=== PATIENT | female | born 1960 | race Caucasian/White ===

== ENCOUNTER → 2018-11-06 | Outpatient (CLI) | payer OTHER ==
[2018-11-06 16:20] LABS: African American GFR (CKD) 95.5 (60.0-200.0); Albumin 4.5 g/dL (3.80-4.90); Albumin/Globulin Ratio 2.5 (1.60-3.17); Anion Gap 7.2 mmol/L (4.00-12.00); Calcium 9.6 mg/dL (8.7-10.3); Carbon Dioxide 28.8 mmol/L (21.6-31.8); Globulin 1.8 g/dL (1.6-3.3); Potassium 4.9 mmol/L (3.5-5.5); Total Bilirubin 0.6 mg/dL (0.2-1.2); Total Protein 6.3 g/dL (6.2-8.2)
== END | disposition home or self-care (01) ==
LOC: LABWHC1 08:27
PROVIDERS: ATTEND Nurse Practitioner Family
DX: E78.5 Hyperlipidemia, unspecified (principal); E55.9 Vitamin D deficiency, unspecified
CPT/HCPCS: 36415; 80053; 80061; 82306

== ENCOUNTER → 2019-01-18 | Outpatient (CLI) | payer OTHER ==
--- NOTE | 2019-01-18 16:41 | US ---
EXAMINATION TYPE: US venous doppler duplex LE LT DATE OF EXAM: 01/18/2019 1:02 PM COMPARISON: NONE CLINICAL HISTORY: 58-year-old female I83.812 Varicose vein left LE, R22.42 Swelling/mass. SIDE PERFORMED: Left TECHNIQUE: The lower extremity deep venous system is examined utilizing real time linear array sonog kilo with graded compression, doppler sonography and color-flow sonography. FINDINGS: VESSELS IMAGED: External Iliac Vein (EIV) Common Femoral Vein Deep Femoral Vein Greater Saphenous Vein * Femoral Vein Popliteal Vein Small Saphenous Vein * Proximal Calf Veins (* superficial vessels) Left Leg: Negative for DVT Area of discoloration scanned in left anterior leg. No mass or fluid collection at this area. IMPRESSION: No evidence for DVT within the left lower extremity imaged from the groin to the upper calf.
== END | disposition home or self-care (01) ==
LOC: RADUSWWP 12:28
PROVIDERS: ATTEND Family Medicine
DX: R22.42 Localized swelling, mass and lump, left lower limb (principal)

== ENCOUNTER → 2019-03-02 | Outpatient (CLI) | payer OTHER ==
--- NOTE | 2019-03-02 10:37 | US ---
EXAMINATION TYPE: US abdomen complete DATE OF EXAM: 03/02/2019 COMPARISON: NONE CLINICAL HISTORY: E66.9 OBESITY,R945 ABN LIVER RESULTS. EXAM MEASUREMENTS: Liver Length: 12.4 cm Gallbladder Wall: 0.2 cm CBD: 0.3 cm Spleen: 9.0 cm Right Kidney: 10.3 x 4.8 x 4.0 cm Left Kidney: 9.5 x 4.5 x 4.5 cm Pancreas: wnl Liver: anechoic area adjacent to gallbladder wall Gallbladder: wnl Evidence for sonographic Easton's sign: no CBD: wnl Spleen: wnl Right Kidney: No hydronephrosis or masses seen Left Kidney: No hydronephrosis or masses seen Upper IVC: wnl Abd Aorta: wnl The visualized liver is slightly heterogeneous. The intrahepatic portion of the IVC and visualized a bdominal aorta are within normal limits. There is no evidence of cholelithiasis. Common bile duct i s unremarkable. The visualized portions of the pancreas are homogenous. The spleen is unremarkable. Kidneys are symmetric and free of hydronephrosis. No renal lesions are seen on images saved. IMPRESSION: No suspicious acute findings identified. No worrisome intrahepatic mass or ductal dilatat ion. Probable mild diffuse fatty infiltration of liver.
== END | disposition home or self-care (01) ==
LOC: RADUSWWP 06:56
PROVIDERS: ATTEND Family Medicine
DX: R94.5 Abnormal results of liver function studies (principal); E66.9 Obesity, unspecified
CPT/HCPCS: 76700

== ENCOUNTER → 2019-10-27 | Outpatient (CLI) | payer OTHER ==
--- NOTE | 2019-10-28 11:19 | MM ---
Reason for exam: screening (asymptomatic). Last mammogram was performed 1 year and 3 months ago. History: Patient is postmenopausal. Physical Findings: A clinical breast exam by your physician is recommended on an annual basis and results should be correlated with mammographic findings. MG Screening Mammo w CAD Bilateral CC and MLO view(s) were taken. XCCL view(s) were taken of the right breast. Prior study comparison: August 10, 2018, mammogram. July 17, 2016, mammogram. There are scattered fibroglandular densities. There is no discrete abnormality. No significant changes when compared with prior studies. ASSESSMENT: Negative, BI-RAD 1 RECOMMENDATION: Routine screening mammogram of both breasts in 1 year.
== END | disposition home or self-care (01) ==
LOC: RADMAMWWP 09:11
PROVIDERS: ATTEND Family Medicine
DX: Z12.31 Encounter for screening mammogram for malignant neoplasm of breast (principal)
CPT/HCPCS: 77067

== ENCOUNTER → 2023-05-07 | Outpatient (CLI) | payer OTHER ==
--- NOTE | 2023-05-11 15:49 | MM ---
Reason for Exam: Screening (asymptomatic). Last mammogram was performed 3 year(s) and 6 month(s) ago. Patient History: Menarche at age 15. First Full-Term at age 26. Postmenopausal. Risk Values: Isamar 5 year model risk: 1.3%. NCI Lifetime model risk: 6.6%. Prior Study Comparison: 07/17/2016 Screening Mammogram, Unknown. 08/10/2018 Screening Mammogram, Unknown. 10/27/2019 Bilateral Screening Mammogram, [facility]. Tissue Density: There are scattered fibroglandular densities. Findings: Analyzed By CAD. The pattern is symmetrical. There is a new nodularity within the upper left mediolateral oblique view 8 cm nipple. Additional workup of this area is recommended. No suspicious groups of microcalcifications, spiculated or lobular masses, architectural distortion or other secondary signs of malignancy are mammographically apparent.The pattern is symmetrical. There is a new nodularity within the upper left mediolateral oblique view 8 cm nipple. Additional workup of this area is recommended. Right breast: No suspicious groups of microcalcifications, spiculated or lobular masses, architectural distortion or other secondary signs of malignancy are mammographically apparent. Overall Assessment: Incomplete: need additional imaging evaluation, BI-RAD 0 Management: Diagnostic Mammogram of the left breast. A negative mammogram report should not preclude additional follow up of suspicious palpable abnormalities. Patient should continue monthly self breast exam. A clinical breast exam by your physician is recommended on an annual basis and results should be correlated with mammographic findings. Electronically signed and approved by: Paolo Manriquez D.O. Radiologis
== END | disposition home or self-care (01) ==
LOC: RADMAMWWP 15:41
PROVIDERS: ATTEND Family Medicine
DX: Z12.31 Encounter for screening mammogram for malignant neoplasm of breast (principal); Z78.0 Asymptomatic menopausal state
CPT/HCPCS: 77067

== ENCOUNTER → 2023-05-14 | Outpatient (CLI) | payer OTHER ==
--- NOTE | 2023-05-14 09:10 | MM ---
Reason for Exam: Additional evaluation requested from abnormal screening. Last screening mammogram was performed less than 1 month ago. Patient History: Menarche at age 15. First Full-Term at age 26. Postmenopausal. Risk Values: Isamar 5 year model risk: 1.3%. NCI Lifetime model risk: 6.6%. Prior Study Comparison: 08/10/2018 Screening Mammogram, Unknown. 10/27/2019 Bilateral Screening Mammogram, [facility]. 05/07/2023 Bilateral MG screening mammo w CAD, [facility]. Tissue Density: Left: There are scattered fibroglandular densities. Findings: Analyzed By CAD. The questioned area of nodular asymmetric density superiorly at a middle depth does not persist on additional views. Findings compatible with superimposition shadow. Overall Assessment: Benign, BI-RAD 2 Management: Screening Mammogram of both breasts in 1 year. . Results were given to the patient verbally at the time of exam. Patient should continue monthly self-breast exams. A clinical breast exam by your physician is recommended on an annual basis. This exam should not preclude additional follow-up of suspicious palpable abnormalities. Note on Isamar scores and lifetime risk: 1. A Isamar score greater than 3% is considered moderate risk. If this is the case, consider specialist referral to assess eligibility for a risk reducing agent. 2. If overall lifetime risk for the development of breast cancer is 20% or higher, the patient may qualify for future screening with alternating mammogram and breast MRI. Electronically signed and approved by: Yeison Silva M.D. Radiologist
== END | disposition home or self-care (01) ==
LOC: RADMAMWWP 08:52
PROVIDERS: ATTEND Family Medicine
DX: R92.322 Mammographic fibroglandular density, left breast (principal); Z78.0 Asymptomatic menopausal state
CPT/HCPCS: 77061; 77065

== ENCOUNTER → 2023-08-28 | Outpatient (CLI) | payer OTHER ==
--- NOTE | 2023-08-28 15:18 | US ---
EXAMINATION TYPE: US abdomen limited DATE OF EXAM: 08/28/2023 COMPARISON: None CLINICAL INDICATION: Female, 63 years old with history of R94.5 ABNORMAL RESULTS OF LIVER FUNCTION ST UDIES; Abnormal labs TECHNIQUE: Multiple sonographic images of the right upper quadrant are obtained. FINDINGS: EXAM MEASUREMENTS: Liver Length: 14.6 cm Gallbladder Wall: 0.2 cm CBD: 0.5 cm Right Kidney: 10.1 x 4.3 x 4.3 cm Pancreas: wnl, tail obscured by overlying bowel gas Liver: Heterogeneous with possible fatty sparing near GB Gallbladder: wnl Evidence for sonographic Easton's sign: No CBD: wnl Right Kidney: wnl IMPRESSION: 1. No hepatomegaly or focal liver mass. 2. Coarsened liver echotexture , possible cirrhosis versus fatty infiltration. 3. Pancreatic tail obscured by bowel gas for normal gallbladder and biliary tree.
== END | disposition home or self-care (01) ==
LOC: RADUSWWP 09:07
PROVIDERS: ATTEND Family Medicine
DX: K76.89 Other specified diseases of liver (principal); R94.5 Abnormal results of liver function studies; R79.9 Abnormal finding of blood chemistry, unspecified
CPT/HCPCS: 76705

== ENCOUNTER → 2023-10-15 | Outpatient (CLI) | payer OTHER ==
--- NOTE | 2023-10-22 23:27 | MR ---
EXAMINATION TYPE: MR hip LT wo con DATE OF EXAM: 10/15/2023 COMPARISON: None. HISTORY: Left hip pain. Standard multiplanar, multisequence MRI departmental protocol Multiplanar, multisequence images of the pelvis focusing on the left hip were acquired without contra st. Diffusion weighted imaging was performed. FINDINGS: Symmetric moderate to severe superior joint space loss in both hips. Mild acetabular spurri ng bilaterally. No significant joint effusion is seen bilaterally. Femoral head shape are maintained bilaterally. No serpiginous diminished T1 signal to suggest avascular necrosis. No suspicious increas ed T2 signal or osseous edema bilaterally. Increased T2 signal or edema of the greater trochanters bi laterally is present. Subcentimeter bilateral groin lymph nodes. No suspicious greater than 1 cm groi n adenopathy. Muscle bulk is symmetric and maintained bilaterally. No groin hernia is evident. Anteverted uterus. No adnexal masses. No free fluid. No abnormal bowel dilatation. 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 Bilateral insertional tendinos is at level of the greater trochanters.
== END | disposition home or self-care (01) ==
LOC: RADMRIMAIN 16:12
PROVIDERS: ATTEND Family Medicine
DX: M25.552 Pain in left hip (principal)

== ENCOUNTER → 2024-08-17 | Outpatient (CLI) | payer OTHER ==
--- NOTE | 2024-08-17 10:56 | MM ---
Reason for Exam: Screening (asymptomatic). Last mammogram was performed 1 year(s) and 3 month(s) ago. Patient History: Menarche at age 15. First Full-Term at age 26. Postmenopausal. Risk Values: Isamar 5 year model risk: 1.4%. NCI Lifetime model risk: 6.2%. Prior Study Comparison: 10/27/2019 Bilateral Screening Mammogram, [facility]. 05/07/2023 Bilateral MG screening mammo w CAD, [facility]. 05/14/2023 Left MG 3D work up w/cad LT, [facility]. Tissue Density: There are scattered areas of fibroglandular density. Findings: Analyzed By CAD. There is no suspicious group of microcalcifications or new suspicious mass in either breast. Overall Assessment: Negative, BI-RAD 1 Management: Screening Mammogram of both breasts in 1 year. . Patient should continue monthly self-breast exams. A clinical breast exam by your physician is recommended on an annual basis. This exam should not preclude additional follow-up of suspicious palpable abnormalities. Note on Isamar scores and lifetime risk: 1. A Isamar score greater than 3% is considered moderate risk. If this is the case, consider specialist referral to assess eligibility for a risk reducing agent. 2. If overall lifetime risk for the development of breast cancer is 20% or higher, the patient may qualify for future screening with alternating mammogram and breast MRI. [facility], , 08/17/2024 10:53 AM. Electronically signed and approved by: Migue lAngel Newton M.D. Radiologis
== END | disposition home or self-care (01) ==
LOC: RADMAMWWP 09:18
PROVIDERS: ATTEND Family Medicine
DX: Z12.31 Encounter for screening mammogram for malignant neoplasm of breast (principal); R92.323 Mammographic fibroglandular density, bilateral breasts; Z78.0 Asymptomatic menopausal state
CPT/HCPCS: 77063; 77067